=== PATIENT | female | born 1950 | race Caucasian/White ===

== ENCOUNTER 2021-10-06 12:04 | Inpatient (IN) | payer MEDICARE, MEDICAID ==
[~2021-10-06] VITALS: Ht 165.1 cm; Wt 69.4 kg
[2021-10-06] MEDS ORDERED: SODIUM CHLORIDE 0.9% 1,000 ML IV ONE (13:00)
[2021-10-06 14:04] LABS: MEAN CORPUSCULAR HEMOGLOBIN 37.8 pg (28.0-32.0); MEAN CORPUSCULAR VOLUME 111.3 fL (81.0-99.0); RED BLOOD CELL COUNT 1.34 mill/uL (4.2-5.4)
[2021-10-06 14:18] LABS: CHLORIDE 106 mEq/L (98-107)
[2021-10-06 14:31] LABS: HEMATOCRIT. 14.9 % (36.0-48.0); HEMOGLOBIN. 5.1 g/dL (12.0-16.0)
[2021-10-06 14:37] LABS: CLARITY URINE CLEAR (CLEAR); COLOR URINE YELLOW (YELLOW); KETONES URINE NEGATIVE (NEGATIVE); LEUKOCYTE ESTERASE URINE NEGATIVE (NEGATIVE); NITRITE URINE NEGATIVE (NEGATIVE); OCCULT BLOOD URINE NEGATIVE (NEGATIVE); PROTEIN URINE NEGATIVE (NEGATIVE); SPECIFIC GRAVITY URINE 1.008 (1.005-1.030)
[2021-10-06 15:36] LABS: MEAN PLATELET VOLUME 14.3 fl (7.4-10.4); PLATELET 52 x1000/uL (130-400)
[2021-10-06 16:08] LABS: PLATELET ESTIMATE MARKEDLY DECREASED
[2021-10-06] MEDS ORDERED: PANTOPRAZOLE 80 MG in SODIUM CHLORIDE 0.9% 100 ML IV NR (17:00)
[2021-10-06] MEDS ORDERED: ACETAMINOPHEN 325MG TABLET PO PRN (19:15)
[2021-10-06] MEDS ORDERED: DIPHENHYDRAMINE 50MG/ML VIAL IV PRN (19:15)
[2021-10-06] MEDS ORDERED: IPRATROPIUM/ALBUTEROL 0.5-3(2.5)MG/3ML NEB HHN PRN (19:15)
[2021-10-06] MEDS ORDERED: CEFTRIAXONE 1 G PREMIX 50 ML IV NR (19:15)
[2021-10-06] MEDS ORDERED: CLONIDINE 0.1MG TABLET PO PRN (19:15)
[2021-10-06] MEDS ORDERED: ONDANSETRON HCL 4MG/2ML INJ IV PRN (19:15)
[2021-10-06] MEDS ORDERED: AZITHROMYCIN 500 MG in DEXT 5% WATER 250 ML IV NR (19:30)
[2021-10-06 20:25] LABS: TOTAL IRON BINDING CAPACITY 284 ug/dL (250-450)
[2021-10-06 20:52] LABS: FERRITIN 488 ng/mL (10-291)
[2021-10-06 21:04] LABS: VITAMIN B12 SERUM 1149 pg/mL (211-911)
[2021-10-06 21:22] LABS: FOLIC ACID (FOLATE) SERUM > 20.00 ng/mL (>5.38)
[2021-10-07 13:50] VITALS: BP 142/68
[2021-10-07] MEDS ORDERED: ATOR40TA70 MT (14:33)
[2021-10-07] MEDS ORDERED: CHLO25TA2 MT (14:33)
[2021-10-07] MEDS ORDERED: LISI20TA31 MT (14:33)
[2021-10-07] MEDS ORDERED: METF-873 PO (14:33)
[2021-10-07] MEDS: SODIUM CHLORIDE 0.9% 1,000 ML IV SCH (15:35)
[2021-10-07] MEDS: CHLORTHALIDONE 25MG TABLET PO SCH (15:35)
[2021-10-07] MEDS: LISINOPRIL 20MG TABLET PO SCH (15:35)
[2021-10-07] MEDS ORDERED: IOHEXOL-300 100 ML BOTTLE ONE (16:54)
[2021-10-07 18:36] LABS: HEMATOCRIT. 21.5 % (36.0-48.0); HEMOGLOBIN. 7.4 g/dL (12.0-16.0); MEAN PLATELET VOLUME 12.2 fl (7.4-10.4); RED BLOOD CELL COUNT 2.11 mill/uL (4.2-5.4); RED CELL DISTRIBUTION WIDTH 19.8 % (11.6-14.6)
[2021-10-07 18:40] LABS: INR 1.2; PROTHROMBIN TIME 12.7 sec (9.6-11.0)
[2021-10-07 18:54] LABS: PLATELET 35 x1000/uL (130-400)
[2021-10-07 19:50] LABS: PLATELET ESTIMATE MARKEDLY DECREASED
[2021-10-07 19:54] LABS: CHLORIDE 106 mEq/L (98-107)
[2021-10-07 20:00] VITALS: BP 118/52
[2021-10-07] MEDS: ATORVASTATIN CALCIUM 20MG TABLET PO SCH (20:46)
[2021-10-07 22:25] VITALS: BP 124/45
[2021-10-07 22:50] VITALS: BP 121/46
[2021-10-07] MEDS ORDERED: DEXTROSE 50% WATER 50ML SYRINGE IV PRN (23:45)
[2021-10-07 23:50] VITALS: BP 112/42
[2021-10-08] VITALS: BP 112/72
[2021-10-08] MEDS: SODIUM CHLORIDE 0.9% 1,000 ML IV SCH ×2 (02:07→17:45)
[2021-10-08 03:32] LABS: HEMATOCRIT 24.7 % (36.0-48.0); HEMOGLOBIN 8.6 g/dL (12.0-16.0)
[2021-10-08 04:00] VITALS: BP 102/49
[2021-10-08 06:19] LABS: HEMATOCRIT. 24.2 % (36.0-48.0); HEMOGLOBIN. 8.5 g/dL (12.0-16.0); MEAN CORPUSCULAR HEMOGLOBIN 33.7 pg (28.0-32.0); MEAN PLATELET VOLUME 12.1 fl (7.4-10.4); RED BLOOD CELL COUNT 2.52 mill/uL (4.2-5.4); RED CELL DISTRIBUTION WIDTH 21.4 % (11.6-14.6)
[2021-10-08] MEDS: BLOOD SUGAR DIAGNOSTIC STRIP TEST SCH ×4 (06:49→21:52)
[2021-10-08] MEDS: INSULIN LISPRO 100 UNITS/ML SUBCUT SCH ×4 (07:09→21:00)
[2021-10-08 07:24] LABS: CHLORIDE 105 mEq/L (98-107)
[2021-10-08 08:10] VITALS: BP 113/69
[2021-10-08] MEDS: LISINOPRIL 20MG TABLET PO SCH (08:19)
[2021-10-08] MEDS: METFORMIN HCL 500MG TABLET PO SCH (08:19)
[2021-10-08] MEDS: CHLORTHALIDONE 25MG TABLET PO SCH (08:19)
[2021-10-08 08:28] LABS: PLATELET 33 x1000/uL (130-400)
[2021-10-08 12:00] VITALS: BP 112/58
[2021-10-08] MEDS ORDERED: LACTULOSE 20G/30ML UDC PO PRN (13:45)
[2021-10-08 16:00] VITALS: BP 108/56
[2021-10-08 20:00] VITALS: BP 108/54
[2021-10-08] MEDS: ATORVASTATIN CALCIUM 20MG TABLET PO SCH (21:53)
[2021-10-08] MEDS: SENNOSIDES 8.6MG TABLET PO SCH (21:53)
[2021-10-09] VITALS: BP 118/44
[2021-10-09 00:47] LABS: PLATELET ESTIMATE MARKEDLY DECREASED
[2021-10-09 04:00] VITALS: BP 106/52
[2021-10-09] MEDS: SODIUM CHLORIDE 0.9% 1,000 ML IV SCH ×2 (05:40→17:35)
[2021-10-09] MEDS: BLOOD SUGAR DIAGNOSTIC STRIP TEST SCH ×4 (06:50→20:56)
[2021-10-09 06:51] LABS: HEMATOCRIT. 25.9 % (36.0-48.0); MEAN CORPUSCULAR HEMOGLOBIN 33.6 pg (28.0-32.0); MEAN CORPUSCULAR VOLUME 96.6 fL (81.0-99.0); MEAN PLATELET VOLUME 12.1 fl (7.4-10.4); RED BLOOD CELL COUNT 2.68 mill/uL (4.2-5.4); RED CELL DISTRIBUTION WIDTH 21.6 % (11.6-14.6)
[2021-10-09 06:53] LABS: CHLORIDE 105 mEq/L (98-107)
[2021-10-09 07:31] LABS: PLATELET 31 x1000/uL (130-400)
[2021-10-09] MEDS: INSULIN LISPRO 100 UNITS/ML SUBCUT SCH ×4 (07:54→20:56)
[2021-10-09 08:00] VITALS: BP 104/35
[2021-10-09] MEDS: LISINOPRIL 20MG TABLET PO SCH (09:00)
[2021-10-09] MEDS: CHLORTHALIDONE 25MG TABLET PO SCH (09:00)
[2021-10-09] MEDS: DOCUSATE SODIUM 250MG CAPSULE PO SCH (09:00)
[2021-10-09] MEDS: METFORMIN HCL 500MG TABLET PO SCH (09:26)
[2021-10-09 12:00] VITALS: BP 124/43
[2021-10-09 13:09] LABS: NUCLEATED RED BLOOD CELLS 1 /100 WBC; PLATELET ESTIMATE MARKEDLY DECREASED
[2021-10-09 16:00] VITALS: BP 110/50
[2021-10-09 20:00] VITALS: BP 109/49
[2021-10-09] MEDS: SENNOSIDES 8.6MG TABLET PO SCH (20:42)
[2021-10-09] MEDS: ATORVASTATIN CALCIUM 20MG TABLET PO SCH (20:54)
[2021-10-10] VITALS (7 sets, daily range): BP systolic 102–127; BP diastolic 39–61
[2021-10-10] MEDS: BLOOD SUGAR DIAGNOSTIC STRIP TEST SCH ×4 (06:25→21:07)
[2021-10-10] MEDS: INSULIN LISPRO 100 UNITS/ML SUBCUT SCH ×4 (06:25→21:00)
[2021-10-10 06:30] LABS: HEMATOCRIT. 26.5 % (36.0-48.0); HEMOGLOBIN. 9.1 g/dL (12.0-16.0); MEAN CORPUSCULAR HEMOGLOBIN 33.3 pg (28.0-32.0); MEAN CORPUSCULAR VOLUME 96.6 fL (81.0-99.0); RED BLOOD CELL COUNT 2.74 mill/uL (4.2-5.4); RED CELL DISTRIBUTION WIDTH 21.2 % (11.6-14.6)
[2021-10-10 06:33] LABS: CHLORIDE 106 mEq/L (98-107)
[2021-10-10] MEDS: LISINOPRIL 20MG TABLET PO SCH (08:21)
[2021-10-10] MEDS: CHLORTHALIDONE 25MG TABLET PO SCH (08:21)
[2021-10-10] MEDS: DOCUSATE SODIUM 250MG CAPSULE PO SCH (08:22)
[2021-10-10] MEDS: METFORMIN HCL 500MG TABLET PO SCH (09:15)
[2021-10-10] MEDS: SODIUM CHLORIDE 0.9% 1,000 ML IV SCH ×2 (09:15→21:30)
[2021-10-10 10:00] LABS: PLATELET ESTIMATE DECREASED
[2021-10-10 10:21] LABS: NUCLEATED RED BLOOD CELLS 1 /100 WBC
[2021-10-10] MEDS ORDERED: DIPHENOXYLATE/ATROPINE 2.5/0.025MG TABLET PO PRN (20:30)
[2021-10-10] MEDS: SENNOSIDES 8.6MG TABLET PO SCH (21:00)
[2021-10-10] MEDS: ATORVASTATIN CALCIUM 20MG TABLET PO SCH (21:14)
[2021-10-11] VITALS: BP 97/49
[2021-10-11 04:00] VITALS: BP 125/47
[2021-10-11] MEDS: BLOOD SUGAR DIAGNOSTIC STRIP TEST SCH ×4 (06:11→21:41)
[2021-10-11] MEDS: INSULIN LISPRO 100 UNITS/ML SUBCUT SCH ×4 (06:11→21:00)
[2021-10-11 06:17] LABS: INR 1.2; PROTHROMBIN TIME 12.4 sec (9.6-11.0)
[2021-10-11 06:25] LABS: HEMATOCRIT. 26.3 % (36.0-48.0); HEMOGLOBIN. 9.2 g/dL (12.0-16.0); MEAN CORPUSCULAR HEMOGLOBIN 33.5 pg (28.0-32.0); MEAN CORPUSCULAR VOLUME 95.5 fL (81.0-99.0); MEAN PLATELET VOLUME 11.5 fl (7.4-10.4); RED BLOOD CELL COUNT 2.75 mill/uL (4.2-5.4); RED CELL DISTRIBUTION WIDTH 20.3 % (11.6-14.6)
[2021-10-11 06:38] LABS: CHLORIDE 107 mEq/L (98-107)
[2021-10-11 08:00] VITALS: BP 104/60
[2021-10-11] MEDS: METFORMIN HCL 500MG TABLET PO SCH (09:00)
[2021-10-11] MEDS: CHLORTHALIDONE 25MG TABLET PO SCH (09:00)
[2021-10-11] MEDS: LISINOPRIL 20MG TABLET PO SCH (09:00)
[2021-10-11 12:00] VITALS: BP 118/64
[2021-10-11 16:00] VITALS: BP 115/63
[2021-10-11] MEDS: PANTOPRAZOLE SODIUM 40 MG/VIAL IV SCH (17:57)
[2021-10-11] MEDS: SODIUM CHLORIDE 0.9% 1,000 ML IV SCH (17:57)
[2021-10-11 20:00] VITALS: BP 103/53
[2021-10-11 21:03] LABS: HEMATOCRIT 26.6 % (36.0-48.0)
[2021-10-11] MEDS: ATORVASTATIN CALCIUM 20MG TABLET PO SCH (21:35)
[2021-10-12] VITALS (7 sets, daily range): BP systolic 90–122; BP diastolic 28–46
[2021-10-12 00:53] LABS: HEMATOCRIT 24.6 % (36.0-48.0); HEMOGLOBIN 8.3 g/dL (12.0-16.0)
[2021-10-12 07:11] LABS: CHLORIDE 109 mEq/L (98-107)
[2021-10-12] MEDS ORDERED: PHENYLEPHRINE HCL 10 MG/ML 1ML (IV VIAL) IV ONE (07:38)
[2021-10-12] MEDS ORDERED: MIDAZOLAM HCL 2 MG/2 ML VIAL ONE (07:38)
[2021-10-12] MEDS ORDERED: FENTANYL CITRATE/PF 50MCG/ML 2ML VIAL ONE (07:38)
[2021-10-12] MEDS: SODIUM CHLORIDE 0.9% 1,000 ML IV SCH ×2 (07:39→15:10)
[2021-10-12] MEDS ORDERED: PROPOFOL 10MG/ML 100ML 100 ML IV ONE (07:39)
[2021-10-12] MEDS ORDERED: EPHEDRINE SULFATE 50MG/ML VIAL ONE (07:39)
[2021-10-12] MEDS: PANTOPRAZOLE SODIUM 40 MG/VIAL IV SCH ×2 (07:43→18:00)
[2021-10-12 07:48] LABS: HEMATOCRIT. 24.1 % (36.0-48.0); HEMOGLOBIN. 8.4 g/dL (12.0-16.0); MEAN CORPUSCULAR HEMOGLOBIN 33.2 pg (28.0-32.0); MEAN CORPUSCULAR VOLUME 95.4 fL (81.0-99.0); RED BLOOD CELL COUNT 2.52 mill/uL (4.2-5.4); RED CELL DISTRIBUTION WIDTH 20.6 % (11.6-14.6)
[2021-10-12] MEDS: INSULIN LISPRO 100 UNITS/ML SUBCUT SCH ×3 (07:51→18:10)
[2021-10-12] MEDS: BLOOD SUGAR DIAGNOSTIC STRIP TEST SCH ×3 (07:51→17:40)
[2021-10-12] MEDS ORDERED: LIDOCAINE HCL 2% 5ML SYRINGE IV ONE (07:55)
[2021-10-12] MEDS: CHLORTHALIDONE 25MG TABLET PO SCH (09:58)
[2021-10-12] MEDS: LISINOPRIL 20MG TABLET PO SCH (09:59)
[2021-10-12] MEDS: METFORMIN HCL 500MG TABLET PO SCH (09:59)
[2021-10-12 10:35] LABS: PLATELET ESTIMATE DECREASED
[2021-10-12 14:53] LABS: PLATELET 28 x1000/uL (130-400); PLATELET ESTIMATE MARKEDLY DECREASED
[2021-10-12 15:48] LABS: HEMOGLOBIN 8.9 g/dL (12.0-16.0)
== END 2021-10-12 17:50 | disposition home or self-care (01) | DRG 835 ==
LOC: ER 12:04 → MICUSO 16:14 → EDBEDREQTM 16:16 → EDBEDREQ 16:16 → EDBEDREQSVC 16:16 → 7WST 10-07 13:56
PROVIDERS: ADMIT Internal Medicine; ATTEND Internal Medicine
PROC: 30233N1 Transfusion of Nonautologous Red Blood Cells into Peripheral Vein, Percutaneous Approach (ICD-10-PCS; 2021-10-06)
PROC: 079T3ZX Drainage of Bone Marrow, Percutaneous Approach, Diagnostic (ICD-10-PCS; principal; 2021-10-12)
DX: C95.00 Acute leukemia of unspecified cell type not having achieved remission (principal); D62 Acute posthemorrhagic anemia; K92.2 Gastrointestinal hemorrhage, unspecified; J98.11 Atelectasis; D53.9 Nutritional anemia, unspecified; E78.5 Hyperlipidemia, unspecified; D69.6 Thrombocytopenia, unspecified; E11.9 Type 2 diabetes mellitus without complications; D75.89 Other specified diseases of blood and blood-forming organs; I10 Essential (primary) hypertension; K64.9 Unspecified hemorrhoids; N28.1 Cyst of kidney, acquired; E78.00 Pure hypercholesterolemia, unspecified; K76.89 Other specified diseases of liver; K64.4 Residual hemorrhoidal skin tags; Z20.822 Contact with and (suspected) exposure to COVID-19; Z79.4 Long term (current) use of insulin
CPT/HCPCS: 36415; 38220; 71045; 74177; 76700; 80048; 80053; 81003; 82270; 82607; 82728; 82746; 82962; 83036; 83540; 83550; 83615; 84484; 84550; 85014; 85018; 85025; 85044; 85049; 85060; 85097; 86850; 86900; 86920; 87426; 88313; 93005; 93970; 99291; C1893; C9113; J0456; J0696; J2250; J2370; J2704; J3010; J3490; J7030; J7050; J7060; P9016; Q9967

== ENCOUNTER 2021-11-19 10:02 | Inpatient (IN) | payer MEDICARE, MEDICAID ==
[~2021-11-19] VITALS: Ht 152.4 cm; Wt 66.7 kg
[~2021-11-19 10:02] MED LIST: ATOR40TA70 MT; CHLO25TA2 MT; LISI20TA31 MT; METF-873 PO
[2021-11-19] MEDS ORDERED: PANTOPRAZOLE SODIUM 40 MG/VIAL IV STA ×2 (11:19→13:42)
[2021-11-19 12:35] LABS: CLARITY URINE CLEAR (CLEAR); COLOR URINE YELLOW (YELLOW); KETONES URINE NEGATIVE (NEGATIVE); LEUKOCYTE ESTERASE URINE NEGATIVE (NEGATIVE); NITRITE URINE NEGATIVE (NEGATIVE); OCCULT BLOOD URINE NEGATIVE (NEGATIVE); PH URINE 5.5 (4.5-8.0); PROTEIN URINE NEGATIVE (NEGATIVE); UROBILINOGEN URINE 0.2 E.U./dL (0.2-1.0)
[2021-11-19 12:40] LABS: CHLORIDE 96 mEq/L (98-107)
[2021-11-19 12:42] LABS: MEAN CORPUSCULAR HEMOGLOBIN 30.6 pg (28.0-32.0); MEAN CORPUSCULAR VOLUME 94.2 fL (81.0-99.0); RED BLOOD CELL COUNT 1.45 mill/uL (4.2-5.4); RED CELL DISTRIBUTION WIDTH 19.9 % (11.6-14.6)
[2021-11-19 12:44] LABS: INR 1.1; PROTHROMBIN TIME 11.8 sec (9.6-11.0)
[2021-11-19 12:47] LABS: HEMATOCRIT. 13.7 % (36.0-48.0); HEMOGLOBIN. 4.4 g/dL (12.0-16.0)
[2021-11-19 12:50] LABS: TOTAL IRON BINDING CAPACITY 356 ug/dL (250-450)
[2021-11-19 13:20] LABS: PLATELET ESTIMATE DECREASED
[2021-11-19 14:29] VITALS: BP 110/35
[2021-11-19] MEDS ORDERED: ACETAMINOPHEN 325MG TABLET PO PRN (16:45)
[2021-11-19] MEDS ORDERED: ONDANSETRON HCL 4MG/2ML INJ IV PRN (16:45)
[2021-11-19 17:00] VITALS: BP 125/56
[2021-11-19 20:00] VITALS: BP 120/61
[2021-11-19 20:45] LABS: HEMOGLOBIN 6.4 g/dL (12.0-16.0)
[2021-11-19 20:46] LABS: HEMATOCRIT 19.1 % (36.0-48.0)
[2021-11-19 23:24] VITALS: BP 75/30
[2021-11-19 23:39] VITALS: BP 91/27
[2021-11-20] VITALS (7 sets, daily range): BP systolic 75–108; BP diastolic 30–89
[2021-11-20 02:57] LABS: HEMATOCRIT 21.8 % (36.0-48.0); HEMOGLOBIN 7.3 g/dL (12.0-16.0)
[2021-11-20] MEDS: MIDODRINE HCL 5MG TABLET PO SCH ×3 (09:42→16:36)
[2021-11-20] MEDS ORDERED: SODIUM CHLORIDE 0.9% 500 ML IV ONE (09:45)
[2021-11-20 18:01] LABS: HEMATOCRIT. 21.8 % (36.0-48.0); HEMOGLOBIN. 7.5 g/dL (12.0-16.0); MEAN CORPUSCULAR HEMOGLOBIN 31.6 pg (28.0-32.0); MEAN CORPUSCULAR VOLUME 91.5 fL (81.0-99.0); MEAN PLATELET VOLUME 12.5 fl (7.4-10.4); RED BLOOD CELL COUNT 2.38 mill/uL (4.2-5.4); RED CELL DISTRIBUTION WIDTH 17.5 % (11.6-14.6)
[2021-11-20 18:15] LABS: CHLORIDE 105 mEq/L (98-107)
[2021-11-20 18:19] LABS: PLATELET 45 x1000/uL (130-400)
[2021-11-20 20:13] LABS: PLATELET ESTIMATE MARKEDLY DECREASED
[2021-11-21] VITALS: BP 102/45
[2021-11-21 08:00] VITALS: BP 101/46
[2021-11-21] MEDS: MIDODRINE HCL 5MG TABLET PO SCH ×3 (09:48→17:17)
[2021-11-21 12:00] VITALS: BP 100/60
[2021-11-21 15:43] LABS: HEMATOCRIT. 22.9 % (36.0-48.0); HEMOGLOBIN. 7.8 g/dL (12.0-16.0); MEAN CORPUSCULAR HEMOGLOBIN 30.9 pg (28.0-32.0); MEAN CORPUSCULAR VOLUME 90.5 fL (81.0-99.0); MEAN PLATELET VOLUME 11.2 fl (7.4-10.4); PLATELET 52 x1000/uL (130-400); RED BLOOD CELL COUNT 2.53 mill/uL (4.2-5.4); RED CELL DISTRIBUTION WIDTH 17.6 % (11.6-14.6)
[2021-11-21 15:51] LABS: CHLORIDE 104 mEq/L (98-107)
[2021-11-21 16:00] VITALS: BP 103/55
[2021-11-21 19:36] LABS: PLATELET ESTIMATE MARKEDLY DECREASED
[2021-11-21 20:00] VITALS: BP 105/36
[2021-11-22] VITALS: BP 102/44
[2021-11-22 04:00] VITALS: BP 100/37
[2021-11-22 08:00] VITALS: BP 96/37
[2021-11-22] MEDS: MIDODRINE HCL 5MG TABLET PO SCH ×3 (08:17→16:16)
[2021-11-22 11:58] VITALS: BP 123/40
[2021-11-22 15:57] VITALS: BP 122/50
[2021-11-22 20:00] VITALS: BP 126/36
[2021-11-22 20:37] LABS: HEMATOCRIT 22.3 % (36.0-48.0); HEMOGLOBIN 7.8 g/dL (12.0-16.0)
[2021-11-23] VITALS: BP 99/37
[2021-11-23 04:00] VITALS: BP 123/53
[2021-11-23 08:00] VITALS: BP 134/66
[2021-11-23] MEDS: MIDODRINE HCL 5MG TABLET PO SCH ×3 (08:11→16:29)
[2021-11-23 12:00] VITALS: BP 119/55
[2021-11-23 16:00] VITALS: BP 118/45
[2021-11-23 20:00] VITALS: BP 115/115
[2021-11-24] VITALS: BP 109/62
[2021-11-24 04:00] VITALS: BP 121/56
[2021-11-24 08:00] VITALS: BP 119/39
[2021-11-24] MEDS: MIDODRINE HCL 5MG TABLET PO SCH ×3 (09:03→16:28)
[2021-11-24 12:00] VITALS: BP 133/58
[2021-11-24 13:38] LABS: HEMATOCRIT. 23.1 % (36.0-48.0); HEMOGLOBIN. 7.8 g/dL (12.0-16.0); MEAN CORPUSCULAR HEMOGLOBIN 30.5 pg (28.0-32.0); MEAN CORPUSCULAR VOLUME 90.4 fL (81.0-99.0); RED BLOOD CELL COUNT 2.56 mill/uL (4.2-5.4); RED CELL DISTRIBUTION WIDTH 17.4 % (11.6-14.6)
[2021-11-24 13:57] LABS: CHLORIDE 104 mEq/L (98-107)
[2021-11-24 14:17] LABS: PLATELET 51 x1000/uL (130-400)
[2021-11-24 14:29] LABS: PLATELET ESTIMATE MARKEDLY DECREASED
[2021-11-24 16:00] VITALS: BP 126/52
[2021-11-24 20:00] VITALS: BP 101/46
[2021-11-25] VITALS: BP 111/52
[2021-11-25 04:00] VITALS: BP 116/49
[2021-11-25 08:00] VITALS: BP 117/59
[2021-11-25] MEDS: MIDODRINE HCL 5MG TABLET PO SCH ×3 (09:24→17:03)
[2021-11-25 12:00] VITALS: BP 113/63
[2021-11-25 16:00] VITALS: BP 123/39
[2021-11-25 20:00] VITALS: BP 121/39
[2021-11-26] VITALS: BP 118/51
[2021-11-26 04:00] VITALS: BP 103/45
[2021-11-26 08:00] VITALS: BP 125/52
[2021-11-26] MEDS: MIDODRINE HCL 5MG TABLET PO SCH ×2 (09:17→13:56)
[2021-11-26 12:00] VITALS: BP 123/49
[2021-11-26 16:00] VITALS: BP 127/65
[2021-11-26 20:00] VITALS: BP 102/51
[2021-11-27] VITALS: BP 111/55
[2021-11-27 04:00] VITALS: BP 96/77
[2021-11-27 08:00] VITALS: BP 132/52
[2021-11-27] MEDS: MIDODRINE HCL 5MG TABLET PO SCH ×2 (09:00→12:10)
[2021-11-27 12:00] VITALS: BP 143/50
[2021-11-27 15:27] VITALS: BP 128/55
== END 2021-11-27 16:00 | disposition short-term general hospital (02) | DRG 835 ==
LOC: ER 10:02 → EDBEDREQ 12:30 → EDBEDREQTM 12:32 → 7WST 13:37 → EDBEDREQ 13:45 → ENRESERV 14:49
PROVIDERS: ADMIT Internal Medicine; ATTEND Internal Medicine
PROC: 30233N1 Transfusion of Nonautologous Red Blood Cells into Peripheral Vein, Percutaneous Approach (ICD-10-PCS; principal; 2021-11-19)
DX: C95.00 Acute leukemia of unspecified cell type not having achieved remission (principal); E87.1 Hypo-osmolality and hyponatremia; D64.9 Anemia, unspecified; Z20.822 Contact with and (suspected) exposure to COVID-19; E11.9 Type 2 diabetes mellitus without complications; E78.00 Pure hypercholesterolemia, unspecified; E87.8 Other disorders of electrolyte and fluid balance, not elsewhere classified; I10 Essential (primary) hypertension
CPT/HCPCS: 36415; 71045; 80048; 80053; 81003; 83540; 83550; 84145; 84484; 85014; 85018; 85025; 85044; 85384; 86850; 86900; 86920; 87426; 97162; 99291; C1893; C9113; P9016; U0003; U0005

== ENCOUNTER 2021-12-31 13:16 | Inpatient (IN) | payer MEDICARE, MEDICAID ==
[~2021-12-31] VITALS: Ht 157.5 cm; Wt 77.2 kg
[2021-12-31 19:50] LABS: CHLORIDE 103 mEq/L (98-107)
[2021-12-31 19:58] LABS: INR 1.2; PROTHROMBIN TIME 12.3 sec (9.6-11.0)
[2021-12-31 21:07] LABS: MEAN CORPUSCULAR HEMOGLOBIN 28.9 pg (28.0-32.0); MEAN PLATELET VOLUME 10.1 fl (7.4-10.4); RED BLOOD CELL COUNT 1.75 mill/uL (4.2-5.4); RED CELL DISTRIBUTION WIDTH 15.9 % (11.6-14.6)
[2021-12-31 21:21] LABS: HEMATOCRIT. 14.7 % (36.0-48.0); PLATELET 9 x1000/uL (130-400)
[2022-01-01 00:02] LABS: CLARITY URINE CLEAR (CLEAR); COLOR URINE YELLOW (YELLOW); KETONES URINE NEGATIVE (NEGATIVE); LEUKOCYTE ESTERASE URINE NEGATIVE (NEGATIVE); NITRITE URINE NEGATIVE (NEGATIVE); OCCULT BLOOD URINE NEGATIVE (NEGATIVE); PROTEIN URINE NEGATIVE (NEGATIVE); SPECIFIC GRAVITY URINE 1.004 (1.005-1.030); UROBILINOGEN URINE 0.2 E.U./dL (0.2-1.0)
[2022-01-01 05:00] LABS: PLATELET ESTIMATE MARKEDLY DECREASED
[2022-01-01 08:29] LABS: HEMATOCRIT 21.4 % (36.0-48.0); HEMOGLOBIN 7.3 g/dL (12.0-16.0); MEAN CORPUSCULAR HEMOGLOBIN 29.1 pg (28.0-32.0); MEAN CORPUSCULAR VOLUME 85.1 fL (81.0-99.0); RED BLOOD CELL COUNT 2.52 mill/uL (4.2-5.4); RED CELL DISTRIBUTION WIDTH 15.1 % (11.6-14.6)
[2022-01-01 08:50] LABS: PLATELET 25 x1000/uL (130-400)
[2022-01-01] MEDS ORDERED: DOCUSATE SODIUM 100MG CAPSULE PO PRN (11:45)
[2022-01-01] MEDS ORDERED: IPRATROPIUM/ALBUTEROL 0.5-3(2.5)MG/3ML NEB HHN PRN (11:45)
[2022-01-01] MEDS ORDERED: ONDANSETRON HCL 4MG/2ML INJ IV PRN (11:45)
[2022-01-01] MEDS ORDERED: LORAZEPAM 0.5MG TABLET PO PRN (11:45)
[2022-01-01] MEDS ORDERED: CLONIDINE 0.1MG TABLET PO PRN (11:45)
[2022-01-01] MEDS ORDERED: ACETAMINOPHEN 325MG TABLET PO PRN ×2 (11:45)
[2022-01-01] MEDS ORDERED: HYDROCODONE/ACETAMINOPHEN 5/325MG TABLET PO PRN (11:45)
[2022-01-01 12:00] VITALS: BP 107/64
[2022-01-01] MEDS ORDERED: NALOXONE HCL 0.4MG/ML VIAL IV PRN (12:00)
[2022-01-01] MEDS ORDERED: DEXTROSE 50% WATER 50ML SYRINGE IV PRN (12:00)
[2022-01-01] MEDS: BLOOD SUGAR DIAGNOSTIC STRIP TEST SCH ×3 (13:09→21:59)
[2022-01-01] MEDS: INSULIN LISPRO 100 UNITS/ML SUBCUT SCH ×3 (13:09→21:00)
[2022-01-01] MEDS ORDERED: ACYC200C31 PO (13:41)
[2022-01-01] MEDS ORDERED: VENE100T PO (13:41)
[2022-01-01] MEDS ORDERED: LEVO-65 MT (13:41)
[2022-01-01] MEDS ORDERED: PANTOPRAZOLE SODIUM 40 MG/VIAL IV SCH (15:00)
[2022-01-01 16:00] VITALS: BP 103/59
[2022-01-01 17:27] VITALS: BP 103/59
[2022-01-01] MEDS: POLYVINYL ALCOHOL OPHTH DROPS 15ML LEFTEYE SCH (18:19)
[2022-01-01] MEDS ORDERED: IOHEXOL-300 100 ML BOTTLE ONE (18:29)
[2022-01-01 20:00] VITALS: BP 96/55
[2022-01-01] MEDS: ATORVASTATIN CALCIUM 40MG TABLET PO SCH (21:41)
[2022-01-01] MEDS: PANTOPRAZOLE SODIUM 40 MG/VIAL IV SCH (21:42)
[2022-01-02] VITALS: BP 105/60
[2022-01-02] MEDS: POLYVINYL ALCOHOL OPHTH DROPS 15ML LEFTEYE SCH ×4 (00:34→17:45)
[2022-01-02 02:12] LABS: HEMOGLOBIN 7.5 g/dL (12.0-16.0)
[2022-01-02 02:19] LABS: HEMATOCRIT 20.9 % (36.0-48.0)
[2022-01-02 04:00] VITALS: BP 102/60
[2022-01-02] MEDS: BLOOD SUGAR DIAGNOSTIC STRIP TEST SCH ×4 (05:24→21:13)
[2022-01-02] MEDS: INSULIN LISPRO 100 UNITS/ML SUBCUT SCH ×4 (05:24→21:00)
[2022-01-02 08:00] VITALS: BP 105/56
[2022-01-02 08:20] LABS: HEMATOCRIT. 21.8 % (36.0-48.0); HEMOGLOBIN. 7.5 g/dL (12.0-16.0); MEAN CORPUSCULAR HEMOGLOBIN 29.1 pg (28.0-32.0); MEAN CORPUSCULAR VOLUME 83.9 fL (81.0-99.0); MEAN PLATELET VOLUME 7.8 fl (7.4-10.4); RED CELL DISTRIBUTION WIDTH 14.7 % (11.6-14.6)
[2022-01-02 08:35] LABS: PLATELET 18 x1000/uL (130-400)
[2022-01-02] MEDS: PANTOPRAZOLE SODIUM 40 MG/VIAL IV SCH ×2 (08:55→21:13)
[2022-01-02 10:21] LABS: CHLORIDE 108 mEq/L (98-107)
[2022-01-02 10:26] LABS: TOTAL IRON BINDING CAPACITY 168 ug/dL (250-450)
[2022-01-02 10:28] LABS: PLATELET ESTIMATE MARKEDLY DECREASED
[2022-01-02 12:00] VITALS: BP 122/56
[2022-01-02 16:00] VITALS: BP 126/60
[2022-01-02 20:00] VITALS: BP 98/58
[2022-01-02] MEDS: ATORVASTATIN CALCIUM 40MG TABLET PO SCH (21:13)
[2022-01-03] VITALS (9 sets, daily range): BP systolic 101–136; BP diastolic 50–74
[2022-01-03] MEDS: POLYVINYL ALCOHOL OPHTH DROPS 15ML LEFTEYE SCH ×5 (00:38→23:49)
[2022-01-03] MEDS: INSULIN LISPRO 100 UNITS/ML SUBCUT SCH ×4 (05:25→20:39)
[2022-01-03] MEDS: BLOOD SUGAR DIAGNOSTIC STRIP TEST SCH ×4 (05:25→20:39)
[2022-01-03 07:03] LABS: HEMATOCRIT. 21.3 % (36.0-48.0); HEMOGLOBIN. 7.5 g/dL (12.0-16.0); MEAN CORPUSCULAR HEMOGLOBIN 29.3 pg (28.0-32.0); MEAN CORPUSCULAR VOLUME 83.8 fL (81.0-99.0); MEAN PLATELET VOLUME 7.8 fl (7.4-10.4); PLATELET 15 x1000/uL (130-400); RED BLOOD CELL COUNT 2.55 mill/uL (4.2-5.4); RED CELL DISTRIBUTION WIDTH 14.5 % (11.6-14.6)
[2022-01-03 07:26] LABS: INR 1.1; PROTHROMBIN TIME 12.2 sec (9.6-11.0)
[2022-01-03] MEDS: PANTOPRAZOLE SODIUM 40 MG/VIAL IV SCH ×2 (08:43→20:39)
[2022-01-03 10:56] LABS: PLATELET ESTIMATE MARKEDLY DECREASED
[2022-01-03 11:06] LABS: HEMATOCRIT 21.7 % (36.0-48.0); HEMOGLOBIN 7.5 g/dL (12.0-16.0)
[2022-01-03 11:30] LABS: CHLORIDE 108 mEq/L (98-107)
[2022-01-03] MEDS: ATORVASTATIN CALCIUM 40MG TABLET PO SCH (20:38)
[2022-01-03 22:11] LABS: HEMATOCRIT 20.1 % (36.0-48.0); HEMOGLOBIN 6.9 g/dL (12.0-16.0)
[2022-01-04] VITALS (10 sets, daily range): BP systolic 109–147; BP diastolic 55–82
[2022-01-04 01:47] LABS: HEMOGLOBIN 7.1 g/dL (12.0-16.0)
[2022-01-04 01:53] LABS: HEMATOCRIT 20.9 % (36.0-48.0)
[2022-01-04] MEDS: POLYVINYL ALCOHOL OPHTH DROPS 15ML LEFTEYE SCH ×3 (05:39→17:23)
[2022-01-04] MEDS: BLOOD SUGAR DIAGNOSTIC STRIP TEST SCH ×3 (05:39→17:25)
[2022-01-04] MEDS: INSULIN LISPRO 100 UNITS/ML SUBCUT SCH ×3 (05:39→17:25)
[2022-01-04 07:46] LABS: MEAN CORPUSCULAR VOLUME 84.2 fL (81.0-99.0); MEAN PLATELET VOLUME 9.6 fl (7.4-10.4); RED BLOOD CELL COUNT 2.45 mill/uL (4.2-5.4); RED CELL DISTRIBUTION WIDTH 14.3 % (11.6-14.6)
[2022-01-04] MEDS: PANTOPRAZOLE SODIUM 40 MG/VIAL IV SCH (08:24)
[2022-01-04 08:47] LABS: HEMATOCRIT. 20.6 % (36.0-48.0); HEMOGLOBIN. 7.1 g/dL (12.0-16.0)
[2022-01-04 08:48] LABS: PLATELET 28 x1000/uL (130-400)
[2022-01-04 14:26] LABS: PLATELET ESTIMATE MARKEDLY DECREASED
[2022-01-04 18:05] LABS: CHLORIDE 106 mEq/L (98-107)
== END 2022-01-04 19:30 | disposition home or self-care (01) | DRG 808 ==
LOC: ER 13:16 → EDBEDREQTM 23:43 → EDBEDREQ 23:43 → MICUSO 01-01 01:28 → 7WST 01-01 10:05
PROVIDERS: ADMIT Internal Medicine; ATTEND Internal Medicine
PROC: 30233N1 Transfusion of Nonautologous Red Blood Cells into Peripheral Vein, Percutaneous Approach (ICD-10-PCS; principal; 2022-01-01)
DX: D61.818 Other pancytopenia (principal); K57.91 Diverticulosis of intestine, part unspecified, without perforation or abscess with bleeding; C92.00 Acute myeloblastic leukemia, not having achieved remission; E11.9 Type 2 diabetes mellitus without complications; E78.00 Pure hypercholesterolemia, unspecified; E83.51 Hypocalcemia; H11.33 Conjunctival hemorrhage, bilateral; D69.6 Thrombocytopenia, unspecified; I10 Essential (primary) hypertension; E78.5 Hyperlipidemia, unspecified; Z92.3 Personal history of irradiation; Z79.84 Long term (current) use of oral hypoglycemic drugs
CPT/HCPCS: 36415; 74177; 80048; 80053; 81003; 82270; 82378; 82728; 82962; 83540; 83550; 83615; 84550; 85014; 85018; 85025; 85027; 85044; 85049; 86850; 86870; 86900; 86920; 93005; 93306; 99291; C9113; P9016; P9034; Q9967